=== PATIENT | male | born 1990 | race Caucasian/White ===

== ENCOUNTER 2018-11-27 04:45 | Inpatient (IN) | payer MEDICARE, MEDICAID ==
[~2018-11-27] VITALS: Ht 172.7 cm; Wt 54.2 kg
[2018-11-27] VITALS (529 sets, daily range): BP systolic 98–105; BP diastolic 60–70; PULSE 57–88; TEMP 97.2–98.5; O2SAT 76–100
[~2018-11-27 04:45] MED LIST: BANZEL200 MG PO; BANZEL400 MG PO; CEPHALEXIN250 M1 PO; KEPPRA 500MG500 MG PO; KEPPRA1000 MG PO; LAMICTAL; LAMICTAL150 MG PO; MOBIC 7.5MG7.5 MG; PEPCID 20MG TAB20 MG PO; PHENERGAN 25 TA25 MG PO; PROZAC 10MG10 MG PO; PROZAC40 MG PO; TOPAMAX 25MG25 MG PO; UNABLE; ZYRTEC 10MG PO; ZYRTEC10MGSGL PO; ZYRTEC5 MG PO; [UNRECOGNIZED DRUG - OTHER]; [UNRECOGNIZED DRUG - OTHER] PO
[2018-11-27 05:15] LABS: HEMATOCRIT 48.5 % (42.0-52.0); HEMOGLOBIN 15.4 g/dl (13.5-18.0); MEAN CELL VOLUME 95 fl (80.0-100.0); MEAN CORPUSCULAR HEMOGLOBIN 30 pg (27.0-31.0); MEAN CORPUSCULAR HGB CONC 32 g/dl (33.0-37.0); MEAN PLATELET VOLUME 9.7 fl (7.4-10.4); PLATELET COUNT 379 K/mm3 (130-400); RED BLOOD COUNT 5.09 M/mm3 (4.20-5.60); REDCELL DISTRIBUTION WIDTH-CV 12.2 % (11.5-14.5)
[2018-11-27 05:26] LABS: ALANINE AMINOTRANSFERASE 36 U/L (21-72); ALBUMIN 5.1 gm/dL (3.5-5.0); ALKALINE PHOSPHATASE 161 U/L (50-136); ANION GAP 26 mmol/L (7-16); AST,SGOT 31 U/L (15-37); BILIRUBIN,TOTAL 0.4 mg/dL (0.0-1.0); BLOOD UREA NITROGEN 12 mg/dL (9-20); CALCIUM 10.8 mg/dL (8.4-10.2); CARBON DIOXIDE 20 mmol/L (22-30); CHLORIDE 101 mmol/L (98-107); CREATININE, serum 0.77 mg/dL (0.66-1.25); GLUCOSE 161 mg/dL (74-106); POTASSIUM 3.3 mmol/L (3.4-5.0); SODIUM 147 mmol/L (137-145); TOTAL PROTEIN 8.9 gm/dL (6.4-8.2)
[2018-11-27 05:31] LABS: ALCOHOL(ethanol),MEDICAL < 10 mg/dL
[2018-11-27 05:42] LABS: PROLACTIN 68.2 ng/mL (3.7-17.9)
[2018-11-27 05:59] LABS: BAND 10 % (0-10); EOSINOPHIL 2 % (0-4); HYPOCHROMIA 1+; LYMPHOCYTE 44 % (20.0-51.0); NEUTROPHILS 41 % (42.0-75.2); PLATELET ESTIMATE NORMAL (NORMAL)
[2018-11-27] MEDS ORDERED: BRIVIACT100 MG PO (06:25)
--- NOTE | 2018-11-27 09:19 | NUR ---
Telephone report recieved from MARQUIS Hernandez
--- NOTE | 2018-11-27 09:36 | NUR ---
Pt arrived on ED cart with seizure precaution pads on side rails. Pt denied wish to transfer self from cart to ICU bed therefore pt transfered via draw-sheet. Pt Awake and alert - pt is oriented to self and location and situation, pt is not oriented to date or time (sister who's at bedside confirms this is baseline mental status for pt). Seizure precaution pads placed on side rails. Swallow performed by this RN: pt able to swallow with no choking or coughing Call light within reach. Pt wishes to sleep, sister at bedside states pt "sleeps all day after haivng a seizure".
[2018-11-27] MEDS ORDERED: BANZEL400 MG PO (10:17)
--- NOTE | 2018-11-27 13:51 | NUR ---
MD Srinivas and Rep are at bedside testing Vagal Nerve Stimulator
--- NOTE | 2018-11-27 14:32 | NUR ---
SW contacted the patient's sister, Mary, via phone to discuss discharge plan. The patient lives in [place] with his father (Erick), sister (Mary), his two nieces, and nephew. The patient's sister reports that the patient needs some assistance with ADLs, such as bathing and taking his meds. The patient's sister reports that she is able to provide that assistance and support. The patient's sister reports that the patient does not use any DME to ambulate and that the patient goes to [facility] during the week. The patient's PCP is Dr. Butch Mason and he receives his medications at [facility]. The patient's sister reports no difficulties obtaining his meds. The patient's adjudication and dispositional order appointing co-guardians and co-conservators are in EMR. The patient's sister had no other questions or concerns at this time. SW to continue to follow.
[2018-11-28] VITALS (279 sets, daily range): BP systolic 92–111; BP diastolic 52–68; PULSE 86–98; TEMP 97–98.8; O2SAT 82–100
[2018-11-28 05:00] LABS: BASO % 0.2 % (0.0-2.0); EOS # 0.2 (0.0-0.7); EOS % 2.5 % (0-4.0); GRAN # 4.3 (1.4-6.5); GRAN % 51.9 % (42.2-75.2); HEMATOCRIT 38.4 % (42.0-52.0); LYMPH # 3.2 (1.2-3.4); MEAN CELL VOLUME 92 fl (80.0-100.0); MEAN CORPUSCULAR HGB CONC 33 g/dl (33.0-37.0); MONO # 0.6 (0.1-0.6); MONO % 7.2 % (1.7-9.3); PLATELET COUNT 290 K/mm3 (130-400); RED BLOOD COUNT 4.17 M/mm3 (4.20-5.60); REDCELL DISTRIBUTION WIDTH-CV 12.7 % (11.5-14.5)
[2018-11-28 05:11] LABS: ALBUMIN 3.9 gm/dL (3.5-5.0); BILIRUBIN,TOTAL 0.2 mg/dL (0.0-1.0); CALCIUM 9.3 mg/dL (8.4-10.2); CREATININE, serum 0.66 mg/dL (0.66-1.25); POTASSIUM 4.5 mmol/L (3.4-5.0); TOTAL PROTEIN 7.1 gm/dL (6.4-8.2)
[2018-11-28 05:42] LABS: HEMOGLOBIN 12.7 g/dl (13.5-18.0); MEAN CORPUSCULAR HEMOGLOBIN 30 pg (27.0-31.0)
--- NOTE | 2018-11-28 07:42 | NUR ---
Pt awake and alert watching television. Pt assisted to bedsdie commode to urinate. Breakfast has been placed for pt. RT Layla called for EEG - to be done around 0800 today. Call light within reach.
--- NOTE | 2018-11-28 10:33 | NUR ---
First visit from the bottled beverage inspector. No needs right now.
--- NOTE | 2018-11-28 10:47 | NUR ---
Telephone report given to MARQUIS Alexander. Mary (sister/DPOA) called and notified of transfer to Surgical unit.
--- NOTE | 2018-11-28 11:32 | NUR ---
Patient to room 344 from ICU. Report from Gen ICU Nurse. Patient alert & oriented. Watching paw patrol. Lunch ordered. denies pain. Answers questions Yes & No. Minimally conversive. Will montior closely.
--- NOTE | 2018-11-28 15:01 | NUR ---
patient did well with lunch, he is now watching basketball. Patient offered childrens books to look at. Offered to color he was not interested.
--- NOTE | 2018-11-28 18:53 | NUR ---
Report received from Poonam CHO. Patient ambulated to bathroom with standby assist and gait belt. No needs noted at this time.
--- NOTE | 2018-11-28 19:18 | NUR ---
Patient resting in bed, just finished dinner. His sister was here this afternoon. Patient stand by assist with gaitbelt to the bathroom & he voided. Patient continues to watch TV. Denies pain or need. Seizure precautions in place. Report to Carlotta Estrada
--- NOTE | 2018-11-28 21:53 | NUR ---
Patient resting. Denies pain. Patient refusing oral care.
--- NOTE | 2018-11-29 01:00 | NUR ---
Patient ambulated to bathroom with stand by assist. No difficulties. Denies pain.
[2018-11-29 04:54] VITALS: BP 112/68; PULSE 84; TEMP 98.1
--- NOTE | 2018-11-29 06:35 | NUR ---
Pt sleeping after being awake for most of the night. No distress noted. No seizure activity noted during shift. Neuro checks within normal limits.
[2018-11-29 07:22] VITALS: BP 107/61; PULSE 65; TEMP 97.5
--- NOTE | 2018-11-29 08:56 | NUR ---
Patient resting in bed. Night nurse reports he did not sleep much over night. He is sleeping now. Did wake him to give am meds. Patient not ready for breakfast. Patient answer all questions "nope". Will let him rest & montior.
--- NOTE | 2018-11-29 11:32 | NUR ---
Patient ate all of his breakfast, not et ready for lunch. Did speak with his sister this am, she plans to pick him up this afternoon. Hospitalist team & have rounded. Reymundo tan.
[2018-11-29 11:56] VITALS: BP 99/49; PULSE 73; TEMP 97.9
--- NOTE | 2018-11-29 15:39 | NUR ---
Patient sister here, they are ready for discharge. His sister assisted with a shower. INT was DC. Patient sister given all education, we discussed home medication list & last dose taken, patient sent with his home medication. We reviewed follow up appt. His sister aware she may go to medication records for eeg results for primary neuro doctor. Patient wheeled out with all belongings. They deny questions & concerns.
[2018-11-29 22:14] LABS: RUFINAMIDE XXX
== END 2018-11-29 15:42 | disposition home or self-care (01) | DRG 101 ==
LOC: COL.ER 04:45 → SURG 07:44 → ICU 07:44 → SURG 11-28 10:52
PROVIDERS: Emergency Medicine
DX: G40.901 Epilepsy, unspecified, not intractable, with status epilepticus (principal); E87.2 Acidosis; E87.0 Hyperosmolality and hypernatremia; G80.9 Cerebral palsy, unspecified; E87.6 Hypokalemia; F79 Unspecified intellectual disabilities; A08.4 Viral intestinal infection, unspecified; R73.9 Hyperglycemia, unspecified
CPT/HCPCS: 99238; J1650; J1953; J2060; J2405; J3480; J7030; J7120

== ENCOUNTER 2019-11-22 19:40 | Inpatient (IN) | payer MEDICARE, MEDICAID ==
[~2019-11-22] VITALS: Ht 165.1 cm; Wt 50.0 kg
[~2019-11-22 19:40] MED LIST changes: +BRIVIACT100 MG PO
[2019-11-22 20:22] LABS: HEMATOCRIT 38.6 % (42.0-52.0); HEMOGLOBIN 12.5 g/dl (13.5-18.0); MEAN CELL VOLUME 96 fl (80.0-100.0); MEAN CORPUSCULAR HEMOGLOBIN 31 pg (27.0-31.0); MEAN CORPUSCULAR HGB CONC 32 g/dl (33.0-37.0); MEAN PLATELET VOLUME 8.6 fl (7.4-10.4); PLATELET COUNT 411 K/mm3 (130-400); RED BLOOD COUNT 4.04 M/mm3 (4.20-5.60); REDCELL DISTRIBUTION WIDTH-CV 13.1 % (11.5-14.5)
[2019-11-22 20:38] LABS: ALBUMIN 4.4 gm/dL (3.5-5.0); BILIRUBIN,TOTAL 0.8 mg/dL (0.0-1.0); C-REACTIVE PROTEIN 5.5 mg/dL (0.0-0.9); CALCIUM 9.5 mg/dL (8.4-10.2); CREATININE, serum 0.76 (0.66-1.25); POTASSIUM 4.1 mmol/L (3.4-5.0); TOTAL PROTEIN 8.2 gm/dL (6.4-8.2)
[2019-11-22 21:11] LABS: BAND 23 % (0-10); EOSINOPHIL 1 % (0-4); LYMPHOCYTE 10 % (20.0-51.0); METAMYELOCYTE 1 % (0-0); MYELOCYTE 2 % (0-0); NEUTROPHILS 63 % (42.0-75.2)
[2019-11-22 21:12] LABS: PLATELET ESTIMATE INCREASED (NORMAL); STOMATOCYTE 1+
[2019-11-22] MEDS ORDERED: ZYRTEC 10MG10 MG PO (22:10)
[2019-11-22] MEDS ORDERED: EPIDIOLEX100 MG/1 M PO (22:13)
--- NOTE | 2019-11-22 22:35 | NUR ---
Patient arrived to medical floor from ER at this time.
[2019-11-22 22:39] VITALS: BP 95/51; PULSE 78; TEMP 98.9
--- NOTE | 2019-11-22 23:33 | NUR ---
Patient assessed. Able to answer simple questions appropriately. Denies having pain and discomfort. Fluids running per orders in peripheral IV site to right AC. Site is without redness, warmth, swelling, and pain. LS CTA. Respirations even and unlabored. Denies SOB and dyspnea. HRR. Capillary refill is less than 3 seconds. Non-tenting skin turgor. BSAx4. Abdomen soft and non-tender. No edema. Voices no questions, needs, or concerns at this time. Cousin at bedside. Given pillow and blanket. Voices no needs. Encouraged to call for assistance. High fall risk precautions in place.
[2019-11-22 23:51] VITALS: BP 83/41; PULSE 65; TEMP 97.8
--- NOTE | 2019-11-23 01:50 | NUR ---
Patient resting in bed at this time. NS completed at this time. Started D5NS with KCl per orders.
[2019-11-23 03:42] VITALS: BP 82/54; PULSE 87; TEMP 97.8
--- NOTE | 2019-11-23 05:53 | NUR ---
Patient has been resting in bed. Has denied having pain and discomfort when asked. IV fluids continue per orders. Call light is within reach.
[2019-11-23 07:30] VITALS: BP 97/61; PULSE 83; TEMP 99
[2019-11-23 08:57] LABS: BASO % 0.2 % (0.0-2.0); EOS # 0.1 (0.0-0.7); EOS % 0.6 % (0-4.0); GRAN # 15.9 (1.4-6.5); GRAN % 83.5 % (42.2-75.2); LYMPH % 10.4 % (20.0-51.0); MEAN CELL VOLUME 98 fl (80.0-100.0); MEAN CORPUSCULAR HGB CONC 32 g/dl (33.0-37.0); MEAN PLATELET VOLUME 9.8 fl (7.4-10.4); MONO # 0.8 (0.1-0.6); MONO % 4.4 % (1.7-9.3); PLATELET COUNT 319 K/mm3 (130-400); RED BLOOD COUNT 3.26 M/mm3 (4.20-5.60); REDCELL DISTRIBUTION WIDTH-CV 13.3 % (11.5-14.5)
[2019-11-23 09:02] LABS: HEMOGLOBIN 10.2 g/dl (13.5-18.0); MEAN CORPUSCULAR HEMOGLOBIN 31 pg (27.0-31.0)
--- NOTE | 2019-11-23 09:03 | NUR ---
Pt assessment complete. Pt is sitting up in bed upon entry, he is alert and oriented to place and person. He denies any pain. No SOB. occasional cough present, no production. Pt denies any pain. IVF infusing without complications. Pt up to restroom, ambulates well. No needs at this time. Call light within reach.
[2019-11-23 09:14] LABS: CALCIUM 8.2 mg/dL (8.4-10.2); CREATININE, serum 0.58 (0.66-1.25); POTASSIUM 3.8 mmol/L (3.4-5.0)
[2019-11-23 11:14] VITALS: BP 102/57; PULSE 72; TEMP 98.2
--- NOTE | 2019-11-23 11:44 | NUR ---
Pt's family member brought in patient's home meds, both sent to pharmacy.
--- NOTE | 2019-11-23 13:00 | NUR ---
Pt's cousin reports he believes patient is having a seizure, upon entry, patient sleeping with small amounts of twitching. Pt awakens to voice and states he is tired. No pain at this time. Vitals attained 102/58 HR 74 100% on RA. Seizure precautions in place. Will continue to monitor.
--- NOTE | 2019-11-23 16:18 | NUR ---
Gas Stove Servicer Helper met with patient and patient's nephew Nazario to discuss discharge planning. aNzario advised that his phone number is the same as his mother Mary's (ph#[phone]). Patient's sister, Mary is his Guardian. Patient lives in [place] with his father Erick, coretta Lange, sister Mary, and two of his nieces. Patient sees Dr. Mason for primary care and obtains medications from [facility]. Patient does not use any DME at home but has assistance with ADLS provided by his family. Patient receives [facility] from [facility]. Patient plans to return home upon discharge and patient's meryphew Nazario states Mary will provide transportation.
[2019-11-23 16:20] VITALS: BP 107/64; PULSE 80; TEMP 98.5
--- NOTE | 2019-11-23 19:21 | NUR ---
Pt rested through the day. Remained on RA. Was very drowsy. No pain or concerns. Pt up to restroom with SBA. IV now INT. Family at bedside.
[2019-11-23 20:16] VITALS: BP 100/55; PULSE 78; TEMP 98.5
--- NOTE | 2019-11-23 20:30 | NUR ---
Call received from patient's sister/DPOA. Concerned about patient not being given a menu to order food. Explained that the kitchen now brings up meals three times a day based on the patient's diet, and that we have some food in the nutrition room for when the kitchen is closed. Voiced understanding. Also concerned regarding discharging. CONOR is currently on chemo, and does not feel comfortable with patient returning home until his infection is resolved. Order will be placed for perinatal social worker explaining situation, as CONOR requested to speak with perinatal social worker tomorrow. Voices no further questions, needs, or concerns at this time.
--- NOTE | 2019-11-23 20:45 | NUR ---
Patient assessed at this time. Denies having pain and discomfort. Peripheral IV to right AC. Site without redness, warmth, swelling, and pain. Denies SOB and dypsnea. LS CTA. Respirations even and unlabored. HRR. Capillary refill less than 3 seconds. Non-tenting skin turgor. BSAx4. Abdomen soft and non-tender. No edema. Voices no questions, needs, or concerns at this time. Resting in bed with call light within reach. Family member at bedside.
[2019-11-23 23:13] VITALS: BP 95/54; PULSE 80; TEMP 97.8
[2019-11-24 05:36] VITALS: BP 103/54; PULSE 70; TEMP 98.1
--- NOTE | 2019-11-24 06:13 | NUR ---
Patient has denied having pain and discomfort this shift. Occasional cough. No sputum production. Denies SOB and dyspnea. Resting in bed with call light within reach.
[2019-11-24 07:31] VITALS: BP 98/58; PULSE 64; TEMP 98
[2019-11-24 08:00] LABS: BASO % 0.2 % (0.0-2.0); EOS # 0.2 (0.0-0.7); EOS % 1.2 % (0-4.0); GRAN # 9.3 (1.4-6.5); GRAN % 73.7 % (42.2-75.2); LYMPH # 2.5 (1.2-3.4); LYMPH % 20.1 % (20.0-51.0); MEAN CELL VOLUME 97 fl (80.0-100.0); MEAN CORPUSCULAR HEMOGLOBIN 31 pg (27.0-31.0); MEAN CORPUSCULAR HGB CONC 32 g/dl (33.0-37.0); MEAN PLATELET VOLUME 10.4 fl (7.4-10.4); MONO # 0.6 (0.1-0.6); MONO % 4.4 % (1.7-9.3); PLATELET COUNT 253 K/mm3 (130-400); RED BLOOD COUNT 3.61 M/mm3 (4.20-5.60); REDCELL DISTRIBUTION WIDTH-CV 13.2 % (11.5-14.5)
--- NOTE | 2019-11-24 08:00 | NUR ---
Assessment complete. Patient watching TV in bed. Family at the bedside. Patient is responsive and understanding when speaking with him. IV side CD&I, flushed well. No complaints of pain or discomfort at this time. Call light is within reach.
[2019-11-24 08:03] LABS: HEMATOCRIT 34.9 % (42.0-52.0)
[2019-11-24 08:07] LABS: CALCIUM 9.3 mg/dL (8.4-10.2); CREATININE, serum 0.61 (0.66-1.25)
--- NOTE | 2019-11-24 10:42 | NUR ---
SW reviewed Referral sent by patients provider. After reviewing notes provided by previous SW, this SW contacted patientsnurse to inquire about concerns. SW then contacted patients DPOa who indicated that she was receiving treatment herself and wanted to ensure that patient was no longer contageous before he was released. ANNETTE shared concerns with patient nurse. SW will continue to follow.
--- NOTE | 2019-11-24 10:50 | NUR ---
Visited, listened, and provided spiritual care.
[2019-11-24 11:31] VITALS: BP 107/62; PULSE 68; TEMP 98
--- NOTE | 2019-11-24 16:43 | NUR ---
Patient has had an uneventful day. He did take a shower. He has slept most of the day. Ate his meals well. Software Release Manager has been here almost all day. Pain has had no complaints of pain. Call light is within reach.
[2019-11-24 18:04] VITALS: BP 110/56; PULSE 65; TEMP 98
[2019-11-24 20:15] VITALS: BP 95/51; PULSE 81; TEMP 98.9
--- NOTE | 2019-11-24 21:05 | NUR ---
Patient assessed at this time. Denies having pain and discomfort. Peripheral IV to right AC. Site without redness, warmth, swelling, and pain. Started IV antibiotics per orders. Denies SOB and dyspnea. LS CTA. Occasional dry cough noted. Family member reports yellow/green sputum, but this nurse unable to observe. Respirations even and unlabored. HRR. Capillary refill less than 3 seconds. Non-tenting skin turgor. BSAx4. Abdomen soft and non-tender. No edema. Assisted to bathroom, stand by assist. Urine clear and yellow. Voices no questions, needs, or concerns at this time. Resting in bed watching TV. Call light within reach.
[2019-11-25 04:24] VITALS: BP 89/47; PULSE 65; TEMP 97.4
--- NOTE | 2019-11-25 05:47 | NUR ---
Patient has had no complaints of pain or discomfort. Has been resting in bed with call light within reach. Family member remains at bedside.
[2019-11-25 07:22] VITALS: BP 101/49; PULSE 74; TEMP 98.9
[2019-11-25 08:56] LABS: BASO % 0.2 % (0.0-2.0); EOS # 0.2 (0.0-0.7); EOS % 2.3 % (0-4.0); GRAN # 4.9 (1.4-6.5); GRAN % 58.9 % (42.2-75.2); HEMATOCRIT 37.7 % (42.0-52.0); LYMPH # 2.7 (1.2-3.4); LYMPH % 32.5 % (20.0-51.0); MEAN CELL VOLUME 95 fl (80.0-100.0); MEAN CORPUSCULAR HEMOGLOBIN 30 pg (27.0-31.0); MEAN CORPUSCULAR HGB CONC 32 g/dl (33.0-37.0); MEAN PLATELET VOLUME 9.5 fl (7.4-10.4); MONO # 0.5 (0.1-0.6); MONO % 5.7 % (1.7-9.3); RED BLOOD COUNT 3.95 M/mm3 (4.20-5.60); REDCELL DISTRIBUTION WIDTH-CV 12.7 % (11.5-14.5)
[2019-11-25 08:58] LABS: PLATELET COUNT 441 K/mm3 (130-400)
[2019-11-25 09:01] LABS: CALCIUM 9.6 mg/dL (8.4-10.2); CREATININE, serum 0.65 (0.66-1.25); POTASSIUM 4.1 mmol/L (3.4-5.0)
[2019-11-25] MEDS ORDERED: OMNICEF 300MG300 MG PO (09:59)
--- NOTE | 2019-11-25 10:09 | NUR ---
Assessment complete. Patient resting in bed. Family at bed side. Patient was responsive and cooperative with meds and assessment. Patient had no complaints of pain or discomfort at this time. No further needs were expressed. Call light is within reach.
[2019-11-25 11:28] VITALS: BP 99/62; PULSE 77; TEMP 97.8
[2019-11-25 15:25] VITALS: BP 104/52; PULSE 85; TEMP 98.7
--- NOTE | 2019-11-25 16:25 | NUR ---
Patient had a good day. Took his meds well and seems to be feeling better. Spoke with his sister (CONOR) this morning reguarding discharge, she will be in to pick him up around 1700. No complaints of pain throughout the day. No further needs were expressed from the patient at this time. Call light is within place.
--- NOTE | 2019-11-25 17:37 | NUR ---
Patient left the floor at this time. Discharge instructions were discussed.
--- NOTE | 2019-11-25 18:08 | NUR ---
Patient took all home personal meds with him at time of discharge.
== END 2019-11-25 17:41 | disposition home or self-care (01) | DRG 871 ==
LOC: COL.ER 19:40 → MEDICAL 22:05
PROVIDERS: Emergency Medicine; Hospitalist; Nurse Practitioner Family
DX: A41.9 Sepsis, unspecified organism (principal); J15.9 Unspecified bacterial pneumonia; R65.20 Severe sepsis without septic shock; G40.909 Epilepsy, unspecified, not intractable, without status epilepticus; F79 Unspecified intellectual disabilities; F41.9 Anxiety disorder, unspecified; Z86.73 Personal history of transient ischemic attack (TIA), and cerebral infarction without residual deficits; Z88.0 Allergy status to penicillin
CPT/HCPCS: 99223-AI; 99231-AI; 99232-AI; 99239; A4216; J0456; J0696; J1644; J3480; J7030; J7050

== ENCOUNTER 2021-04-18 15:56 | Emergency (ER) | payer MEDICARE, MEDICAID ==
[~2021-04-18] VITALS: Ht 167.6 cm; Wt 54.5 kg
[~2021-04-18 15:56] MED LIST changes: +EPIDIOLEX100 MG/1 M PO; +OMNICEF 300MG300 MG PO; +ZYRTEC 10MG10 MG PO
[2021-04-18] MEDS ORDERED: CEPHALEXIN500 M1 PO (17:15)
[2021-04-18 18:15] VITALS: BP 120/64; PULSE 64; TEMP 97.6
--- NOTE | 2021-04-20 10:27 | NUR ---
rack production worker filed an APS report #[id number] and contacted manager analysis of Dr Mason's office to advise of the above information. Patient presented with poor hygiene and poor dentation. Nursing felt patient was malnoursished and observed bruising in various stages on upper and lower extremities. Patient has co-guardians/co-conservators and legal documents are on the medical record.
--- NOTE | 2021-04-20 15:10 | NUR ---
Janice with Adult Protective Services states she received the report and will be making contact with patient and guardian's this date.
== END 2021-04-18 18:10 | disposition home or self-care (01) ==
LOC: COL.ER 15:56
DX: S01.511A Laceration without foreign body of lip, initial encounter (principal); G40.909 Epilepsy, unspecified, not intractable, without status epilepticus; Z79.899 Other long term (current) drug therapy; Y28.9XXA Contact with unspecified sharp object, undetermined intent, initial encounter; Y93.83 Activity, rough housing and horseplay; Y92.009 Unspecified place in unspecified non-institutional (private) residence as the place of occurrence of the external cause